=== PATIENT | male | born 1950 | race Two or more races ===

== ENCOUNTER → 2020-08-31 08:00 | Outpatient (CLI) | payer OTHER ==
[~2020-08-31 08:00] MED LIST: LEVOXYL175 MCG PO
== END | disposition home or self-care (01) ==
LOC: LAB 08:00 → ADM 10:45 → CIR.AMB 09-06 10:45 → EDSTATUS 09-06 10:45
PROVIDERS: ATTEND Otolaryngology Otology & Neurotology
DX: H72.91 Unspecified perforation of tympanic membrane, right ear (principal); D68.8 Other specified coagulation defects; Z01.810 Encounter for preprocedural cardiovascular examination; Z20.822 Contact with and (suspected) exposure to COVID-19

== ENCOUNTER 2021-11-21 05:55 | Day surgery (SDC) | payer OTHER ==
[~2021-11-21] VITALS: Ht 162.6 cm; Wt 73.5 kg
[~2021-11-21 05:55] MED LIST changes: +HYSINGLA ER30 MG PO
== END 2021-11-21 16:20 | disposition home or self-care (01) ==
LOC: CIR.AMB 05:55
PROVIDERS: ATTEND Otolaryngology Otology & Neurotology
DX: H72.91 Unspecified perforation of tympanic membrane, right ear (principal); H66.91 Otitis media, unspecified, right ear; Z20.822 Contact with and (suspected) exposure to COVID-19; Z86.16 Personal history of COVID-19; H93.13 Tinnitus, bilateral